=== PATIENT | female | born 1990 | race Caucasian/White ===

== ENCOUNTER 2017-05-24 07:55 | Day surgery (SDC) | payer OTHER ==
--- NOTE | 2017-05-21 12:28 | HISTORY AND PHYSICAL E ---
History and Physical NAME: XANDER MIKE : 1990 AGE: 26Y ADMITTED: 05/24/2017 ROOM: REFERRING PROVIDER: [facility]. HISTORY: The patient is 26, presents with severe reflux, upper abdominal pain. The patient does have IBS, constipation, on MiraLax . PAST SURGICAL HISTORY: Bilateral in the lower extremity after heavy exertion and running long distance. SOCIAL HISTORY: . Does not smoke. She drinks socially. FAMILY HISTORY: Father is alive. Mom is alive, she has heart disease. MEDICATION: 1. Protonix. 2. MiraLax. 3. Geri. 4. Vitamins. ALLERGIES: . REVIEW OF SYSTEMS: HEAD, EYES, EARS, NOSE, THROAT: Eye glasses. LUNGS: Respiratory negative. CARDIAC: Palpitations. ENDOCRINE: Negative. GASTROINTESTINAL: Reflux. Abdominal pain. Hemorrhoids. Constipation. ONCOLOGIC/HEMATOLOGIC: Negative. NEUROLOGIC: Negative. PHYSICAL EXAMINATION: GENERAL: 26, young female. VITAL SIGNS: Blood pressure 115/60, pulse 80, respirations 18, temp is 98. HEAD, EYES, EARS, NOSE, THROAT: Normal. NECK: Supple. CARDIOVASCULAR: Normal. LUNGS: Clear. ABDOMEN: Soft. NEUROLOGIC: Exam negative. CONCLUSION: . PLAN: Upper scope, gallbladder ultrasound, scheduled for 05/24. DICTATING PHYSICIAN: MARANDA CHRISTIANSON M.D. [id number] PHY#: [id number] ID: [id number] JOB#: [id number] ACCT: [id number] cc:MARANDA CHRISTIANSON M.D. >
[~2017-05-24 07:55] MED LIST: EPINEPHRINE INJ 1 MG/10 ML DISP.SYRIN ONE; FENTANYL CITRATE INJ/PF 100 MCG/2 ML AMPUL ONE; FLUMAZENIL INJ 0.5 MG/5 ML VIAL ONE; GLYCOPYRROLATE INJ 0.4 MG/2 ML VIAL ONE; NALOXONE HCL INJ/PF 0.4 MG/1 ML SDV ONE; ONDANSETRON HCL INJ/PF 4 MG/2 ML SDV ONE
[2017-05-24] MEDS: MIDAZOLAM 2 MG/2 ML INJ ONE ×2 (08:15→08:23)
[2017-05-24 09:29] VITALS: BP 118/69
[2017-05-24 09:32] LABS: ABSOLUTE EOSINOPHILS # (AUTO) 0.1 10^3/uL (0.0-0.6); ABSOLUTE LYMPHOCYTES (AUTO) 1.3 10^3/uL (0.5-4.7); ABSOLUTE MONOCYTES (AUTO) 0.6 10^3/uL (0.1-1.4); ABSOLUTE NEUT (AUTO) 3.7 10^3/uL (1.7-8.2); BASOPHILS % (AUTO) 0.8 % (0-2); EOSINOPHILS % (AUTO) 2.2 % (0-6); HEMATOCRIT 38.1 % (36.0-47.0); HEMOGLOBIN 13.3 g/dL (12.0-15.5); HGB HCT DIFFERENCE 1.8; LYMPHOCYTES % (AUTO) 22.8 % (13-45); MEAN CORPUSCULAR HEMOGLOBIN 31.6 pg (27.0-33.4); MEAN CORPUSCULAR VOLUME 90 fl (80-97); MONOCYTES % (AUTO) 10.3 % (3-13); RED BLOOD COUNT 4.21 10^6/uL (3.72-5.28); RED CELL DISTRIBUTION WIDTH 12.9 % (11.5-14.0); SEGMENTED NEUTROPHILS % (AUTO) 63.9 % (42-78); WHITE BLOOD COUNT 5.8 10^3/uL (4.0-10.5)
[2017-05-24 09:48] LABS: ALANINE AMINOTRANSFERASE 27 U/L (9-52); ALBUMIN 3.8 g/dL (3.5-5.0); ALKALINE PHOSPHATASE 45 U/L (38-126); ANION GAP 10 (5-19); ASPARTATE AMINO TRANSFERASE 18 U/L (14-36); BILIRUBIN,DIRECT 0.3 mg/dL (0.0-0.4); BILIRUBIN,TOTAL 0.4 mg/dL (0.2-1.3); BLOOD UREA NITROGEN 12 mg/dL (7-20); CALCIUM 9.4 mg/dL (8.4-10.2); CARBON DIOXIDE 22 mmol/L (22-30); CHLORIDE 107 mmol/L (98-107); CREATININE RESULT 0.66 mg/dL (0.52-1.25); GLUCOSE 110 mg/dL (75-110); POTASSIUM 4.4 mmol/L (3.6-5.0); SODIUM 139.2 mmol/L (137-145); TOTAL PROTEIN 6.8 g/dL (6.3-8.2)
[2017-05-24 10:04] LABS: ERYTHROCYTE SEDIMENTATION RATE 28 mm/hr (0-20)
--- NOTE | 2017-05-24 14:01 | DISCHARGE SUMMARY E ---
Discharge Summary NAME: XANDER MIKE : 1990 AGE: 26Y ADMITTED: 05/24/2017 DISCHARGED: 05/24/2017 HISTORY: A 26-year-old female presented with abdominal pain. She is allergic to SULFA. Upper endoscopy shows no ulcers. She did have [id number] esophagitis, mild gastritis, mild duodenitis. DISCHARGE PLAN: 1. Soft diet. 2. Hold aspirin. 3. Continue Protonix. 4. Patient to see us in the office in the next few days. DICTATING PHYSICIAN: MARANDA CHRISTIANSON M.D. [id number] PHY#: [id number] ID: [id number] JOB#: [id number] ACCT: [id number] cc:[facility] MARANDA PIKE M.D. >
--- NOTE | 2017-05-24 14:01 | OPERATIVE REPORT E ---
Operative Report NAME: XANDER MIKE : 1990 AGE: 26Y DATE OF SURGERY: 05/24/2017 ROOM: PREOPERATIVE DIAGNOSES: 1. Abdominal pain. 2. Reflux. POSTOPERATIVE DIAGNOSES: 1. Esophagitis, mild. 2. Gastritis, mild. 3. Duodenitis, mild. PROCEDURES: 1. Esophagoscopy. 2. Gastroscopy. 3. Duodenoscopy. SURGEON: MARANDA CHRISTIANSON M.D. ANESTHESIA: Patient anxious, received 6 Versed and 100 fentanyl. With titration and adequate sedation, patient tolerated the procedure well. TISSUE REMOVED OR ALTERED: Gastric biopsy, H. pylori. DESCRIPTION: Baby scope passed under guided vision, no difficulties. Esophagoscopy junction at 35 cm. Distal esophagus was consistent with mild reflux. No evidence of stricture. No evidence of ulcers. Gastroscopy: Mild gastritis, some erythema. Biopsy obtained H. pylori. Duodenoscopy: Duodenal bulb shows some duodenitis. Descending duodenum shows some duodenitis. CONCLUSION: No evidence of ulcers. Mild esophagitis, mild gastritis, mild duodenitis. DISCHARGE PLAN: Continue PPI, Protonix. Continue to avoid aspirin, nonsteroidal for a week. I will obtain baseline CBC and Sed rate, and I will do chem profile. DICTATING PHYSICIAN: MARANDA CHRISTIANSON M.D. [id number] [facility]#: [id number] ID: [id number] JOB#: [id number] ACCT: [id number] cc:[facility] MARANDA CHRISTIANSON M.D. >
== END 2017-05-24 09:35 | disposition home or self-care (01) ==
LOC: END 07:55
PROVIDERS: ATTEND Specialist
PROC: 0DB68ZX Excision of Stomach, Via Natural or Artificial Opening Endoscopic, Diagnostic (ICD-10-PCS; principal; 2017-05-24 08:00)
DX: K21.0 Gastro-esophageal reflux disease with esophagitis (principal); K29.50 Unspecified chronic gastritis without bleeding; K29.80 Duodenitis without bleeding; K58.1 Irritable bowel syndrome with constipation; Z79.899 Other long term (current) drug therapy
CPT/HCPCS: 43239; 36415; 85025; 85652; 80053; 88342 ×2; 88305 ×2; J2250; J3010; J2405; J0171; J2310; J3490

== ENCOUNTER → 2017-06-03 | Outpatient (CLI) | payer OTHER ==
--- NOTE | 2017-06-03 15:42 | RADIOLOGY REPORT (SQ) ---
EXAM DESCRIPTION: NM HIDA SCAN WITH CCK COMPLETED DATE/TIME: 06/03/2017 3:00 pm REASON FOR STUDY: ABD PAIN (R10.9) R10.9 UNSPECIFIED ABDOMINAL PAIN COMPARISON: None. RADIONUCLIDE AND DOSE: DOSAGE RADIONUCLIDE: 5 millicuries Tc99m Mebrofenin. DOSAGE CCK: 1.4 micrograms. DOSAGE MORPHINE: Not required. The route of agent administration: Intravenous TECHNIQUE: Serial imaging right upper quadrant up to 60 minutes following injection of radionuclide. CCK injected after gallbladder visualized. LIMITATIONS: None. FINDINGS: LIVER: Normal visualization without areas of photopenia. INTRAHEPATIC BILE DUCTS: Normal size and no delay in visualization. COMMON BILE DUCT: Normal without dilatation. GALLBLADDER: Normal visualization. Calculated ejection fraction of 13%. Normal range is greater th an 35%. PHYSICAL RESPONSE: Patients presenting complaint was not reproduced. OTHER: No other significant finding. IMPRESSION: Abnormal gallbladder ejection fraction of 13% where greater than 35% is considered ashlee l. TECHNICAL DOCUMENTATION: JOB ID: [id number] [employer]- All Rights Reserved
== END ==
LOC: RAD 12:26
PROVIDERS: ATTEND Specialist
DX: R10.9 Unspecified abdominal pain (principal)
CPT/HCPCS: 78227; A9537; Q9969; J2805